=== PATIENT | male | born 1960 | race Caucasian/White ===

== ENCOUNTER 2016-05-14 14:35 | Emergency (ER) | payer OTHER ==
[~2016-05-14] VITALS: Ht 188 cm; Wt 96.0 kg
[~2016-05-14 14:35] MED LIST: AMLO10TA2 PO; ATOR40TA16 PO; HYDR-3516 PO; JANU50TA8 PO; LANTUS2P SQ; LISI-515 PO; LYRI150C PO; PROT40TA PO; [UNRECOGNIZED DRUG - CODE] PO
[2016-05-14 14:38] VITALS: BP 138/77; PULSE 81; RESP 16; TEMP 97.8; O2SAT 96
[2016-05-14] MEDS ORDERED: JANU50TA8 PO ×2 (16:48→16:52)
[2016-05-14] MEDS ORDERED: LANTUS2P SQ ×2 (16:48→16:52)
--- NOTE | 2016-05-14 16:55 | PD ---
HPI Chief Complaint: Medication Refill Request Time Seen by Provider: 16:46 Travel History International Travel<30 days: No Contact w/Intl Traveler<30days: No Traveled to known affect area: No History of Present Illness HPI 55-year-old male presents to the emergency department requesting refills on insulin and his hypertension medication. He is type II diabetic and has not taken his insulin for 2 days. Denies symptoms of hyperglycemia. The patient has not taken his medication for hypertension in approximately a month and a half. He denies symptoms of hypertension. He has no emergent medical complaints at this time. He denies fever, chills, nausea, vomiting. Denies chest pain, shortness breath, abdominal pain, headache, blurred vision, change in urine or stool. Patient also says that he cannot afford the syringes for his insulin and is requesting syringes. No other modifying factors or associated signs and symptoms. PFSH Past Medical History Arthritis: No Asthma: No Autoimmune Disease: No Blood Disorders: No Anxiety: No Depression: Yes Heart Rhythm Problems: No Cancer: No Cardiovascular Problems: Yes (HTN) High Cholesterol: Yes Chemotherapy: No Chest Pain: No Congestive Heart Failure: No COPD: No Cerebrovascular Accident: No Diabetes: Yes Diminished Hearing: No Endocrine: Yes Gastrointestinal Disorders: Yes GERD: No Glaucoma: No Genitourinary: No Headaches: No Hepatitis: No Hiatal Hernia: No Hypertension: Yes Immune Disorder: No Implanted Vascular Access Dvce: No Kidney Stones: No Musculoskeletal: No Neurologic: No Psychiatric: No Reproductive: No Respiratory: No Migraines: No Myocardial Infarction: No Radiation Therapy: No Renal Failure: No Seizures: No Sleep Apnea: No Thyroid Disease: No Ulcer: Yes (BLEEDING ULCER IN STOMACH) Past Surgical History Abdominal Surgery: No AICD: No Appendectomy: No Arteriovenous Shunt: No Cardiac Surgery: No Cholecystectomy: No Ear Surgery: No Endocrine Surgery: No Eye Surgery: Yes Genitourinary Surgery: No Gynecologic Surgery: No Insulin Pump: No Joint Replacement: No Neurologic Surgery: No Oral Surgery: No Pacemaker: No Thoracic Surgery: No Other Surgery: Yes Social History Alcohol Use: No Tobacco Use: No Substance Use: No Allergies-Medications (Allergen,Severity, Reaction): Coded Allergies: Vancomycin (Verified Allergy, Severe, ITCHING, 05/14/16) DIAPHORESIS Reported Meds & Prescriptions Reported Meds & Active Scripts Active Lantus Inj (Insulin Glargine) 100 Unit/Ml Inj 45 Units SQ HS Janumet (Sitagliptin-Metformin) 50-1,000 Mg Tab 1 Tab PO DAILY Reported Amlodipine (Amlodipine Besylate) 10 Mg Tab 10 Mg PO DAILY Protonix (Pantoprazole Sodium) 40 Mg Tab 40 Mg PO DAILY Lyrica (Pregabalin) 150 Mg Cap 150 Mg PO BID Lisinopril 20 Mg Tab 20 Mg PO DAILY Hydrocodone-Acetaminophen 5-325 mg Tab 1 Tab PO TID PRN Atorvastatin (Atorvastatin Calcium) 40 Mg Tab 40 Mg PO HS Review of Systems Except as stated in HPI: all other systems reviewed are Neg Physical Exam Narrative GENERAL: Well-nourished, well-developed male patient, in no acute distress SKIN: Warm and dry. HEAD: Atraumatic. Normocephalic. EYES: Pupils equal and round. No scleral icterus. No injection or drainage. ENT: Mucosa pink and moist. Airway patent. NECK: Trachea midline. CARDIOVASCULAR: Regular rate. RESPIRATORY: No accessory muscle use. GASTROINTESTINAL: Rounded. MUSCULOSKELETAL: Right BKA. No obvious deformities. No clubbing. No cyanosis. No edema. NEUROLOGICAL: Awake and alert. Oriented 3. No obvious cranial nerve deficits. Motor grossly within normal limits. Normal speech. PSYCHIATRIC: Appropriate mood and affect; insight and judgment normal. Data Data Last Documented VS Vital Signs Date Time Temp Pulse Resp B/P Pulse Ox O2 Delivery O2 Flow Rate FiO2 05/14/16 14:38 97.8 81 16 138/77 96 Room Air MDM Medical Decision Making Medical Screen Exam Complete: Yes Emergency Medical Condition: Yes Medical Record Reviewed: Yes Differential Diagnosis Medication refill, malingering, medical clearance Narrative Course 55-year-old male needing medication refill on his diabetic and hypertension medication. He has not taken his diabetic medication for 2 days. Denies symptoms of hypoglycemia. Patient has been without his hypertension medications for one and half months. Denies symptoms of hypertension. His blood pressure is 138/77 in the ER and I do not feel comfortable refilling his medications with this blood pressure reading. Insulin and Janumet prescribed for home. Case management involved to help with syringes. Patient is medically cleared and stable for discharge. Discussed reasons to return to the emergency department. Instructed patient to follow up with primary care provider. Patient agrees with treatment plan. The patients vital signs are stable and the patient is stable for outpatient follow-up and treatment. Patient discharged home, stable and in no acute distress. Diagnosis Primary Impression: Medication refill Referrals: Primary Care Physician Patient Instructions: General Instructions, Medication Refill, ED Additional Instructions: Follow-up with primary care provider Return to the emergency department immediately with worsening of symptoms Med/Other Pt SpecificInfo: Prescription(s) given Scripts Insulin Glargine Inj (Lantus Inj)100 Unit/Ml Inj45 Units SQ HS #1 Ref 1 Prov:Romina Nickerson 05/14/16 Sitagliptin-Metformin (Aprume)50-1,000 Mg Tab1 Tab PO DAILY #30 TAB Ref 0 Prov:Romina Nickerson 05/14/16 Disposition: 01 DISCHARGE HOME Condition: Stable Romina Nickerson May 14, 2016 16:55
[2016-06-02] MEDS ORDERED: METF500T PO ×3 (10:34→11:03)
[2016-06-02] MEDS ORDERED: AMLO10TA2 PO ×2 (11:00→11:03)
[2016-06-02] MEDS ORDERED: GABA400C5 PO (11:00)
[2016-06-02] MEDS ORDERED: LANTUS2P SQ (11:00)
[2016-06-02] MEDS ORDERED: DOXY100C PO (11:00)
[2016-06-02] MEDS ORDERED: LISI-515 PO ×2 (11:00→11:03)
[2016-06-02] MEDS ORDERED: METF1000 PO ×2 (11:02→11:03)
[2016-06-02] MEDS ORDERED: BAYETES (11:34)
[2016-06-02] MEDS ORDERED: syringes SQ (11:34)
[2016-06-02] MEDS ORDERED: NOVORP2 SQ (11:44)
[2016-06-05] MEDS ORDERED: METF500T PO (09:21)
[2016-06-05] MEDS ORDERED: METF1000 PO (09:21)
[2016-08-04] MEDS ORDERED: GLIP5TAB8 PO (15:03)
[2016-09-01] MEDS ORDERED: GLIP5TAB8 PO (14:37)
[2016-09-01] MEDS ORDERED: syringes SQ (14:40)
[2016-09-01] MEDS ORDERED: LANTUS2P SQ (14:40)
[2016-09-01] MEDS ORDERED: GABA400C5 PO (14:40)
[2016-09-01] MEDS ORDERED: AMLO10TA2 PO (14:41)
[2016-09-01] MEDS ORDERED: LISI-515 PO (14:41)
[2016-09-23] MEDS ORDERED: METF1000 PO (10:15)
[2016-09-24] MEDS ORDERED: METF500T PO (07:53)
== END 2016-05-14 17:52 | disposition home or self-care (01) ==
LOC: NEPB 14:35
DX: I10 Essential (primary) hypertension (principal); E11.9 Type 2 diabetes mellitus without complications; E78.00 Pure hypercholesterolemia, unspecified; Z79.899 Other long term (current) drug therapy; Z76.0 Encounter for issue of repeat prescription
CPT/HCPCS: 99281

== ENCOUNTER 2016-05-18 12:36 | Emergency (ER) | payer OTHER ==
[~2016-05-18] VITALS: Ht 188 cm; Wt 100.0 kg
[~2016-05-18 12:36] MED LIST changes: -[UNRECOGNIZED DRUG - CODE] PO
[2016-05-18 12:38] VITALS: BP 175/89; PULSE 88; RESP 17; TEMP 97.5; O2SAT 98
--- NOTE | 2016-05-18 14:39 | PD ---
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 Patient states pain is minimal, noticed the redness this morning. He can identify no acute injury. He endorses subjective fevers over the last 24 hours. He denies nausea, vomiting, abdominal pain. He is followed by Dr. Bradford, podiatry. [facility] Past Medical History Arthritis: No Asthma: No Autoimmune Disease: No Blood Disorders: No Anxiety: No Depression: Yes Heart Rhythm Problems: No Cancer: No Cardiovascular Problems: Yes (HTN) High Cholesterol: Yes Chemotherapy: No Chest Pain: No Congestive Heart Failure: No COPD: No Cerebrovascular Accident: No Diabetes: Yes Diminished Hearing: No Endocrine: Yes Gastrointestinal Disorders: Yes GERD: No Glaucoma: No Genitourinary: No Headaches: No Hepatitis: No Hiatal Hernia: No Hypertension: Yes Immune Disorder: No Implanted Vascular Access Dvce: No Kidney Stones: No Musculoskeletal: No Neurologic: No Psychiatric: No Reproductive: No Respiratory: No Migraines: No Myocardial Infarction: No Radiation Therapy: No Renal Failure: No Seizures: No Sleep Apnea: No Thyroid Disease: No Ulcer: Yes (BLEEDING ULCER IN STOMACH) Past Surgical History Abdominal Surgery: No AICD: No Appendectomy: No Arteriovenous Shunt: No Cardiac Surgery: No Cholecystectomy: No Ear Surgery: No Endocrine Surgery: No Eye Surgery: Yes Genitourinary Surgery: No Gynecologic Surgery: No Insulin Pump: No Joint Replacement: No Neurologic Surgery: No Oral Surgery: No Pacemaker: No Thoracic Surgery: No Other Surgery: Yes Social History Alcohol Use: No Tobacco Use: No Substance Use: No Allergies-Medications (Allergen,Severity, Reaction): Coded Allergies: Vancomycin (Verified Allergy, Severe, ITCHING, 05/18/16) DIAPHORESIS Reported Meds & Prescriptions Reported Meds & Active Scripts Active Doxycycline Hyclate 100 Mg Cap 100 Mg PO BID Lantus Inj (Insulin Glargine) 100 Unit/Ml Inj 45 Units SQ HS Janumet (Sitagliptin-Metformin) 50-1,000 Mg Tab 1 Tab PO DAILY Reported Amlodipine (Amlodipine Besylate) 10 Mg Tab 10 Mg PO DAILY Protonix (Pantoprazole Sodium) 40 Mg Tab 40 Mg PO DAILY Lyrica (Pregabalin) 150 Mg Cap 150 Mg PO BID Lisinopril 20 Mg Tab 20 Mg PO DAILY Hydrocodone-Acetaminophen 5-325 mg Tab 1 Tab PO TID PRN Atorvastatin (Atorvastatin Calcium) 40 Mg Tab 40 Mg PO HS Review of Systems Except as stated in HPI: all other systems reviewed are Neg Physical Exam Narrative GENERAL: Well-nourished, well-developed white male in no acute distress. SKIN: Warm and dry. HEAD: Normocephalic. EYES: No scleral icterus. No injection or drainage. NECK: Supple, trachea midline. No JVD or lymphadenopathy. CARDIOVASCULAR: Regular rate and rhythm without murmurs, gallops, or rubs. RESPIRATORY: Breath sounds equal bilaterally. No accessory muscle use. GASTROINTESTINAL: Abdomen soft, non-tender, nondistended. MUSCULOSKELETAL: No cyanosis, or edema. Right-sided AKA, well-healed, no signs of infection. FOCUSED LEFT LOWER EXTREMITY EXAM: 2+ DP pulse. Charcot foot. Only the great and second toes remain. Distal aspect of the second toe is mildly erythematous without warm, induration, fluctuance or drainage. Well-healed surgical wound on the dorsal aspect of the foot with small area of noninfected granulated tissue. Subcentimeter ulcer on the plantar aspect of the foot without evidence of infection. BACK: Nontender without obvious deformity. No CVA tenderness. Data Data Last Documented VS Vital Signs Date Time Temp Pulse Resp B/P Pulse Ox O2 Delivery O2 Flow Rate FiO2 05/18/16 16:55 69 20 145/56 99 05/18/16 12:38 97.5 Orders Basic Metabolic Panel (Bmp) (05/18/16 14:49) Complete Blood Count With Diff (05/18/16 14:49) Iv Access Insert/Monitor (05/18/16 14:49) Westergren Sedimentation Rate (05/18/16 14:49) C-Reactive Protein (Crp) (05/18/16 14:49) Foot, Complete ([id number]) (05/18/16 14:49) Labs Laboratory Tests Test 05/18/16 15:15 White Blood Count 10.8 TH/MM3 Red Blood Count 4.64 MIL/MM3 Hemoglobin 11.7 GM/DL Hematocrit 36.2 % Mean Corpuscular Volume 77.9 FL Mean Corpuscular Hemoglobin 25.1 PG Mean Corpuscular Hemoglobin 32.2 % Concent Red Cell Distribution Width 17.4 % Platelet Count 232 TH/MM3 Mean Platelet Volume 9.7 FL Neutrophils (%) (Auto) 71.7 % Lymphocytes (%) (Auto) 18.0 % Monocytes (%) (Auto) 9.6 % Eosinophils (%) (Auto) 0.4 % Basophils (%) (Auto) 0.3 % Neutrophils # (Auto) 7.7 TH/MM3 Lymphocytes # (Auto) 2.0 TH/MM3 Monocytes # (Auto) 1.0 TH/MM3 Eosinophils # (Auto) 0.0 TH/MM3 Basophils # (Auto) 0.0 TH/MM3 CBC Comment DIFF FINAL Differential Comment Erythrocyte Sedimentation Rate 36 mm/hr Sodium Level 136 MEQ/L Potassium Level 4.2 MEQ/L Chloride Level 103 MEQ/L Carbon Dioxide Level 26.6 MEQ/L Anion Gap 6 MEQ/L Blood Urea Nitrogen 24 MG/DL Creatinine 1.11 MG/DL Estimat Glomerular Filtration 69 ML/MIN Rate Random Glucose 277 MG/DL Calcium Level 9.1 MG/DL C-Reactive Protein 12.00 MG/DL [facility] Medical Decision Making Medical Screen Exam Complete: Yes Emergency Medical Condition: Yes Differential Diagnosis Acute osteomyelitis versus chronic osteomyelitis versus cellulitis versus other Narrative Course 55-year-old male with PMH of DM, osteomyelitis, left AKA, 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 Patient states pain is minimal, noticed the redness this morning. Endorses subjective fevers over the last 24 hours. He denies trauma, nausea, vomiting, abdominal pain. He is followed by Dr. Bradford, podiatry. Patient is afebrile on presentation. Physical exam reveals 2+ DP pulse, previous surgical amputation of toes 3 through 5.. Charcot foot. Distal aspect of the second toe is mildly erythematous without warmth, induration, fluctuance or drainage. Well-healed surgical wound on the dorsal aspect of the foot with small area of noninfected granulated tissue. Subcentimeter ulcer on the plantar aspect of the foot without evidence of infection. CBC: No leukocytosis. CMP: Unremarkable. Elevated ESR and CRP which I suspect are chronic. X-ray: Chronic changes without evidence of acute process. Review the patient's record reveals multiple negative blood and wound cultures. Last positive culture 11/17/15. We'll treat for possible cellulitis. Patient is prescribed doxycycline twice a day 10 days, instructed to follow-up with Dr. Bradford tomorrow. We discussed reasons to return to the ED. He indicated understanding of the instructions, agrees with the plan of care, he is stable and discharged home. Diagnosis Primary Impression: Chronic osteomyelitis of foot Qualified Code: M86.672 - Chronic osteomyelitis of left foot Additional Impressions: Charcot foot due to diabetes mellitus Cellulitis Qualified Code: L03.032 - Cellulitis of toe of left foot Referrals: [facility] [employer] Patient Instructions: Cellulitis (ED), General Instructions Additional Instructions: Rest, hydrate. Elevate the foot to relieve pain and swelling. Take all antibiotics as prescribed, even if symptoms resolved. Follow-up with the heavy equipment rental manager this week. Return to the ED for worsening of symptoms or any urgent or emergent medical condition. Med/Other Pt SpecificInfo: Prescription(s) given Scripts Doxycycline Hyclate 100 Mg Hgx238 Mg PO BID #20 CAP Ref 0 Prov:Hosea Munson MD 05/18/16 Disposition: 01 DISCHARGE HOME Condition: Stable Mahnaz Flores May 18, 2016 14:39
[2016-05-18 15:27] LABS: AUTOMATED NEUTROPHIL # 7.7 TH/MM3 (1.8-7.7); BASOPHIL % 0.3 % (0.0-2.0); EOSINOPHIL % 0.4 % (0.0-4.0); HEMATOCRIT 36.2 % (39.0-51.0); HEMO FLAGS DIFF FINAL; MEAN CELL VOLUME 77.9 FL (80.0-100.0); MEAN CORPUSCULAR HEMOGLOBIN 25.1 PG (27.0-34.0); MEAN CORPUSCULAR HGB CONC 32.2 % (32.0-36.0); MONO % 9.6 % (0.0-8.0); NEUT % 71.7 % (16.0-70.0); PLATELET COUNT 232 TH/MM3 (150-450); RED BLOOD COUNT 4.64 MIL/MM3 (4.50-5.90); RED CELL DISTRIBUTION WIDTH 17.4 % (11.6-17.2); WHITE BLOOD COUNT 10.8 TH/MM3 (4.0-11.0)
[2016-05-18 15:47] LABS: BICARBONATE 26.6 MEQ/L (21.0-32.0); POTASSIUM 4.2 MEQ/L (3.5-5.1)
--- NOTE | 2016-05-18 16:00 | RADRPT ---
EXAM DATE/TIME: 05/18/2016 15:00 [facility] COMPARISON: FOOT LEFT COMPLETE ([id number]), February 05, 2016, 12:29. INDICATIONS : Left second digit inflammation. Diabetes. MEDICAL HISTORY : Diabetes mellitus type II. SURGICAL HISTORY : BKA right. Amputation left third digit ENCOUNTER: Initial ACUITY: 1 day PAIN SCORE: 6/10 LOCATION: Left foot FINDINGS: There has been resection of much of the 3rd digit. Only the base of the 3rd metatarsal remains. The re is chronic periosteal reaction seen at all the remaining metatarsals. There is destructive change at the midfoot. There is prominent hypertrophic change seen at the dorsal midfoot. These changes a re likely related to a Charcot joint. There is soft-tissue swelling at the midfoot. CONCLUSION: 1. Suspected Charcot joint primarily affecting the midfoot with areas of bony destruction and hypert rophic change. 2. Status post amputation of much of the 3rd digit with only the base of the 3rd metatarsal remainin g. 3. Chronic appearing periosteal reaction seen at the remaining metatarsals. Antonio Walsh MD on May 18, 2016 at 15:42 Board Certified Radiologist. This report was verified electronically.
[2016-05-18] MEDS ORDERED: CLIN1CAP6 PO (16:38)
[2016-05-18] MEDS ORDERED: DOXY100C PO (16:40)
[2016-05-18 16:55] VITALS: BP 145/56
[2016-06-02] MEDS ORDERED: METF500T PO ×3 (10:34→11:03)
[2016-06-02] MEDS ORDERED: LANTUS2P SQ (11:00)
[2016-06-02] MEDS ORDERED: DOXY100C PO (11:00)
[2016-06-02] MEDS ORDERED: AMLO10TA2 PO ×2 (11:00→11:03)
[2016-06-02] MEDS ORDERED: GABA400C5 PO (11:00)
[2016-06-02] MEDS ORDERED: LISI-515 PO ×2 (11:00→11:03)
[2016-06-02] MEDS ORDERED: METF1000 PO ×2 (11:02→11:03)
[2016-06-02] MEDS ORDERED: BAYETES (11:34)
[2016-06-02] MEDS ORDERED: syringes SQ (11:34)
[2016-06-02] MEDS ORDERED: NOVORP2 SQ (11:44)
[2016-06-05] MEDS ORDERED: METF500T PO (09:21)
[2016-06-05] MEDS ORDERED: METF1000 PO (09:21)
[2016-08-04] MEDS ORDERED: GLIP5TAB8 PO (15:03)
[2016-09-01] MEDS ORDERED: GLIP5TAB8 PO (14:37)
[2016-09-01] MEDS ORDERED: syringes SQ (14:40)
[2016-09-01] MEDS ORDERED: GABA400C5 PO (14:40)
[2016-09-01] MEDS ORDERED: LANTUS2P SQ (14:40)
[2016-09-01] MEDS ORDERED: LISI-515 PO (14:41)
[2016-09-01] MEDS ORDERED: AMLO10TA2 PO (14:41)
[2016-09-23] MEDS ORDERED: METF1000 PO (10:15)
[2016-09-24] MEDS ORDERED: METF500T PO (07:53)
== END 2016-05-18 16:56 | disposition home or self-care (01) ==
LOC: NEPA 12:36
DX: M86.672 Other chronic osteomyelitis, left ankle and foot (principal); E11.610 Type 2 diabetes mellitus with diabetic neuropathic arthropathy; L03.032 Cellulitis of left toe; R50.9 Fever, unspecified; Z79.4 Long term (current) use of insulin; Z79.84 Long term (current) use of oral hypoglycemic drugs
CPT/HCPCS: 73630; 80048; 85025; 85652; 86140; 99283

== ENCOUNTER → 2016-07-28 | Outpatient (CLI) | payer OTHER ==
[~2016-07-28] MED LIST changes: +BAYETES; +DOXY100C PO; +GABA400C5 PO; +GLIP5TAB8 PO; -JANU50TA8 PO; +METF1000 PO; +METF500T PO; +syringes SQ
[2016-07-28 09:24] LABS: AUTOMATED NEUTROPHIL # 6.7 TH/MM3 (1.8-7.7); BASOPHIL % 0.1 % (0.0-2.0); EOSINOPHIL # 0.1 TH/MM3 (0-0.4); EOSINOPHIL % 0.5 % (0.0-4.0); HEMATOCRIT 39.4 % (39.0-51.0); HEMO FLAGS DIFF FINAL; LYMPH % 21.8 % (9.0-44.0); LYMPHOCYTE # 2.2 TH/MM3 (1.0-4.8); MEAN CELL VOLUME 80.9 FL (80.0-100.0); MEAN CORPUSCULAR HEMOGLOBIN 26.1 PG (27.0-34.0); MEAN CORPUSCULAR HGB CONC 32.3 % (32.0-36.0); MONO % 9.6 % (0.0-8.0); PLATELET COUNT 269 TH/MM3 (150-450); RED BLOOD COUNT 4.87 MIL/MM3 (4.50-5.90); WHITE BLOOD COUNT 9.9 TH/MM3 (4.0-11.0)
[2016-07-28 09:40] LABS: HEMOGLOBIN A1b 2.9 %; HEMOGLOBIN Ao 76.3 %; HEMOGLOBIN LA1C 2.7 %
[2016-07-28 10:00] LABS: ANION GAP 12 MEQ/L (5-15); AST (GOT) 14 U/L (15-37); BICARBONATE 24.1 MEQ/L (21.0-32.0); BLOOD UREA NITROGEN 31 MG/DL (7-18); CHLORIDE 101 MEQ/L (98-107); GLOMERULAR FILTRATION RATE 40 ML/MIN (>89); GLUCOSE,FASTING 215 MG/DL (74-99); POTASSIUM 4.5 MEQ/L (3.5-5.1); SODIUM (NA) 137 MEQ/L (136-145)
[2016-07-28 10:11] LABS: ALKALINE PHOSPHATASE 115 U/L (45-117); ALT (GPT) 18 U/L (12-78); HDL CHOLESTEROL 49.4 MG/DL (40.0-60.0); LDL CHOLESTEROL 88 MG/DL (0-99); TOTAL BILIRUBIN ADULT 0.4 MG/DL (0.2-1.0)
== END ==
LOC: CLAB 08:54
PROVIDERS: ATTEND Family Medicine
DX: M14.679 Charcot's joint, unspecified ankle and foot (principal); I10 Essential (primary) hypertension; E78.5 Hyperlipidemia, unspecified; S98.132A Complete traumatic amputation of one left lesser toe, initial encounter; X58.XXXA Exposure to other specified factors, initial encounter; Z89.519 Acquired absence of unspecified leg below knee
CPT/HCPCS: 36415; 80053; 80061; 83036; 84443; 85025

== ENCOUNTER → 2016-08-21 | Outpatient (CLI) | payer OTHER ==
[~2016-08-21] MED LIST changes: -ATOR40TA16 PO; -DOXY100C PO; -HYDR-3516 PO; -LYRI150C PO; -PROT40TA PO
[2016-08-21 11:56] LABS: BICARBONATE 26.7 MEQ/L (21.0-32.0); POTASSIUM 4.5 MEQ/L (3.5-5.1)
== END ==
LOC: CLAB 10:52
PROVIDERS: ATTEND Family Medicine
DX: N19 Unspecified kidney failure (principal)
CPT/HCPCS: 36415; 80069